=== PATIENT | female | born 1970 | race Caucasian/White ===

== ENCOUNTER 2017-03-21 07:59 | Inpatient (IN) ==
[2017-03-20 15:57] LABS: INR 0.9; PT Patient Result 9.2 SECS; Partial Thromboplastin Time 26.1 SECS (0-40)
[2017-03-20 16:08] LABS: Alanine Aminotransferase 24 U/L (13-56); Albumin 4.1 G/DL (3.4-5.0); Alkaline Phosphatase 56 U/L (45-117); Aspartate Amino Transferase 18 U/L (0-37); Bilirubin,Total < 0.39 MG/DL (0.2-1.0); Blood Urea Nitrogen 11 MG/DL (7-18); Calcium 8.9 MG/DL (8.5-10.1); Glucose 113 MG/DL (74-106); Osmolality,Calculated 282.1 MOS/KG (273-304); Potassium 4.3 MMOL/L (3.5-5.1); Sodium 142 MMOL/L (136-145)
[~2017-03-21 07:59] MED LIST: ceFAZolin 2,000 MG in PREMIX 1 EACH IV ONE
--- NOTE | 2017-03-21 08:48 | History and Physical Update ---
History and Physical Update - History and Physical H&P was reviewed, the patient examined and there: are no changes in the patients condition since last H&P was completed.
[2017-03-21] MEDS ORDERED: DIAZEPAM 5 MG TABLET PO ONE (08:50)
[2017-03-21] MEDS ORDERED: SCOPOLAMINE 1.5 MG PATCH TRANSDERM ONE ×2 (08:50→09:04)
[2017-03-21] MEDS ORDERED: FAMOTIDINE 20 MG TABLET PO ONE (08:50)
[2017-03-21] MEDS ORDERED: FAMOTIDINE 20 MG TABLET ONE (09:04)
[2017-03-21] MEDS ORDERED: DIAZEPAM 5 MG TABLET ONE (09:04)
[2017-03-21] MEDS: LACTATED RINGERS 1,000 ML IV SCH ×2 (12:15→16:00)
[2017-03-21] MEDS ORDERED: IODINE TOP ONE (13:09)
[2017-03-21] MEDS ORDERED: POTASSIUM IODIDE TOP ONE (13:09)
[2017-03-21] MEDS ORDERED: ISOSULFAN BLUE 5 ML VIAL SUBCUT ONE (13:09)
[2017-03-21] MEDS ORDERED: FERRIC SUBSULFATE TOP ONE (13:10)
[2017-03-21] MEDS ORDERED: BUPIVACAINE MPF 0.25% /EPI 30 ML VIAL ONE (13:32)
[2017-03-21] MEDS ORDERED: EPINEPHrine 1 MG/ML VIAL ONE (13:32)
[2017-03-21] MEDS ORDERED: DEXAMETHASONE 4 MG/1 ML VIAL ONE (15:09)
[2017-03-21] MEDS ORDERED: PROMETHAZINE 25 MG/1 ML VIAL ONE (15:09)
[2017-03-21] MEDS ORDERED: PROPOFOL 200 MG/20 ML VIAL IV ONE (15:09)
[2017-03-21] MEDS ORDERED: KETOROLAC 30 MG/1 ML VIAL ONE (15:09)
[2017-03-21] MEDS ORDERED: ROCURONIUM 100 MG/10 ML VIAL IV ONE (15:09)
[2017-03-21] MEDS ORDERED: ONDANSETRON 4 MG/2 ML VIAL ONE (15:09)
[2017-03-21] MEDS ORDERED: GLYCOPYRROLATE 0.4 MG/2 ML VIAL ONE (15:09)
[2017-03-21] MEDS ORDERED: NEOSTIGMINE 10 MG/10 ML VIAL ONE (15:09)
[2017-03-21] MEDS ORDERED: LIDOCAINE 2% 5 ML VIAL ONE (15:09)
[2017-03-21] MEDS ORDERED: TISSUE ADHESIVE 1 EACH APPLICATOR TOP ONE (17:09)
[2017-03-21] MEDS ORDERED: ACETAMINOPHEN 325 MG TABLET PO PRN (17:25)
[2017-03-21] MEDS ORDERED: HYDROmorphone 2 MG/1 ML VIAL IV PRN (17:25)
--- NOTE | 2017-03-21 17:42 | Operative Note ---
Date of procedure: 03/21/17 Pre-op diagnosis: Carcinoma of the left breast Post-op diagnosis: same Procedure: Operative note: Preoperative diagnosis: Carcinoma of the left breast invasive 2 o'clock position Postoperative diagnosis: Same Procedure: 1. Left axillary sentinel node biopsy 2. Wire localization with lumpectomy 1 to 3 o'clock position left breast per Dr. Durbin 3. Oncoplastic reconstruction of the left breast per Dr. Carranza Surgeon Dr. Durbin Electric Powerline Examiner Phyllis Suggs, [employer] [facility] Pl[facility] surgeon Dr. Carranza Brief history: 46-year-old white female who has had a core needle biopsy for an abnormal mammogram showing invasive cancer at about 2 o'clock position left breast. This was not a very large area and it did not show up as being extensive cancer in the breast by MRI. She does have moderate-sized breast and we still looked like the possibility we could remove this with a lumpectomy site. Anticipated that she may need a fair amount of tissue removed from this upper outer quadrant and so we got Dr. Carranza consulted for possible Oncoplastic reconstruction. She came in had sentinel node mapping which was very vague not clear nodes seen her counts were pretty low at this point. This was after 2 days protocol. When she came in through same day she was taken to the breast clinic where Dr. Haile did a bracketing of this area for us to proceed with her surgery. Procedure: With patient supine position prepped and draped in sterile fashion timeout and antibiotics completed we approach this area the breast there were 2 wires coming out at about the 2 to 3 o'clock position on the breast itself at this time. We put the counter into the axilla and got accounts there was only about 34 at this point but not very strong. At that time we then put some local in in the area the axilla. I like to go ahead and make an incision in the axilla carefully dissected down through the subtenons tissue bleeding controlled with cauterization. We entered through Aparna's fascia and to the area the axilla fat. We put the counter again I got a count of about 34 but is still 1 very strong. At that point we put her out in the Jigar technology injected at the 12 3 and 6 o'clock position of the material and then brought in her monitor we could see it track up through the breast and into the axilla. Is identified node in this area. We marked that node and then went in and carefully dissected it out. Once it was out it did have a count of 34 and the axilla was 0 now. We put the lillian monitor own and it lit up very brightly. The septum was confirmed that we got the sentinel node. We then sent that off to pathology. We washed irrigated use light cauterization controlling bleeding. Would like to go ahead and close this axilla with closed the subtenons tissue with 3-0 Vicryl and closed the skin running 4-0 Monocryl. Dermabond was applied to this area. Path would come back and see if this lymph node was negative. So we knew we did have to go back in this area. With the axilla part done then we approach this area the breast were made a transverse incision between the 2 wires at this time going down to the skin subtenons tissue. Carefully dissected down through the subcutaneous tissue and I went down to where the breast tissue is at and then begin to dissected around where the wires were to get this area completely removed with the wires intact in this region. We dissected through this lumpectomy site remove the specimen with the wires in place. We did mae the margins at this time with a margin marker and clips. Once the specimen was out that we took it to x-ray and they looked at it. It looked like the upper wire with the medial margin was that may have's be close at this point. We sent specimen to pathology and they too felt like we had clear margins were felt this medial area was close at this time. At this point I went back into the breast and I ellipsed out the pocket that was there taking both complete margins medial laterally superiorly and inferiorly down to muscle. We removed this area intact and marked this region for examination. We then washed irrigated use light cauterization for bleeding. This did leave a larger defect and at this point Dr. Carranza came in to do a reconstruction of this area. See Dr. Carranza's note Once he had completed the procedure then Dr. Hong came in to do a LEEP procedure. See Dr. Hong note With that completed then the patient was taken recovery room in stable satisfactory condition Estimated blood loss 15 cc Sponge count correct 2 Drains none Complications none Condition stable satisfactory Anesthesia: GETA, local (0.25% Marcaine with epinephrine mixed [id number] 1% Xylocaine plain) Surgeon / Physician: Vimal Durbin Electric Powerline Examiner: Phyllis Suggs Estimated blood loss: other (10 cc) Specimens: other (Left axillary sentinel node and lumpectomy left breast) Condition: stable Disposition: floor Results - Labs CBC & BMP: 03/20/17 15:41 Discharge Plan - Discharge Medications No Action buPROPion SR [Wellbutrin Sr] 150 mg PO DAILY Soy Isofla/Blk Cohosh/Mag Bark [Estroven 155 mg Capsule] 1 tablet PO DAILY Multivitamin [One Daily] 1 each PO DAILY - Follow Up or Referral - Forms/Instructions
[2017-03-21] MEDS ORDERED: MIDAZOLAM 2 MG/2 ML VIAL ONE (18:33)
[2017-03-21] MEDS ORDERED: ACETAMINOPHEN 1,000 MG/100 ML VIAL IV ONE (18:33)
[2017-03-21] MEDS ORDERED: ePHEDrine 50 MG/ML AMP ONE (18:33)
[2017-03-21] MEDS ORDERED: LACTATED RINGERS 2,000 ML IV ONE (18:33)
[2017-03-21] MEDS ORDERED: SEVOFLURANE 1 UNIT/15 MINUTE INH ONE (18:33)
--- NOTE | 2017-03-21 18:36 | Anesthesia Post-Op ---
Anesthesia Post OP - Post Ansesthetic Evaluation Patient seen in post op: Yes Resp: within normal limits CV: within normal limits Mental: within normal limits Temp: within normal limits Edvs-Gj-Vueqpinpw: within normal limits Nausea and Vomiting: within normal limits Pain: within normal limits
[2017-03-21] MEDS: DEXTROSE 5% NACL 0.45% 1,000 ML IV SCH (20:12)
[2017-03-21] MEDS: KETOROLAC 15 MG/1 ML VIAL IV SCH (20:21)
[2017-03-21] MEDS: ceFAZolin 2,000 MG in PREMIX 1 EACH IV SCH (23:55)
[2017-03-22] MEDS: KETOROLAC 15 MG/1 ML VIAL IV SCH ×2 (01:18→06:11)
[2017-03-22] MEDS: DEXTROSE 5% NACL 0.45% 1,000 ML IV SCH (01:20)
[2017-03-22 05:06] LABS: Basophils % 0.2 % (0.0-0.8); Hematocrit 35.3 VOL% (35.7-47.0); Hemoglobin 11.8 GM/DL (12.0-16.0); Immature Granulocytes % 0.5 %; Immature Granulocytes Absolute 0.07 #; Lymphocytes # 0.8 10*3/uL (1.4-4.0); Lymphocytes % 6.2 % (21.3-54.2); Mean Corpuscular HGB Conc 33.4 GM/DL (32-36); Mean Corpuscular Hemoglobin 32 PG (27-34); Mean Corpuscular Volume 94.1 FL (87-102); Mean Platelet Volume 11.9 FL (9.6-12.0); Monocytes # 0.6 10*3/uL (0.11-0.8); Monocytes % 4.4 % (1.7-12.7); Neutrophils # 11.8 10*3/uL (1.4-7.4); Neutrophils % 88.7 % (38.7-73.9); Platelet Count 206 T/CUMM (130-400); Red Blood Count 3.75 MC/CUMM (3.8-5.5); Red Cell Distribution Width 14.6 % (9.3-17.3); White Blood Count 13.3 T/CUMM (4-12)
[2017-03-22 05:29] LABS: Calcium 8.8 MG/DL (8.5-10.1); Potassium 4.6 MMOL/L (3.5-5.1)
[2017-03-22] MEDS: ceFAZolin 2,000 MG in PREMIX 1 EACH IV SCH (07:05)
--- NOTE | 2017-03-22 07:55 | Ultrasound Report ---
ULTRASOUND GUIDED WIRE LOCALIZATION OF THE LEFT BREAST WITH SPECIMEN RADIOGRAPH DATE: March 21, 2017 HISTORY: 46-year-old female returning for wire localization of the 1.6 cm low grade carcinoma noted on core needle biopsy from February 20, 2017. The carcinoma is located in the left upper outer quadrant at the 1:00 position located 3 cm from the nipple. PROCEDURE: The ultrasound guided wire localization was discussed with the patient and written informed consent was obtained. The left upper outer quadrant 1:00 irregular mass measuring 1.6 cm was redemonstrated with ultrasound. The skin of the breast and the ultrasound probe were prepared in the usual sterile fashion. 1% lidocaine was used for local anesthesia and a 7 cm Kopans needle was placed at the lateral posterior margin of the targeted mass. Accurate positioning was confirmed with real-time ultrasound and a 20 cm length hookwire was placed through the needle and the needle was removed leaving about 4 cm of wire inside the breast. Additional 1% lidocaine was used for local anesthesia and a second 7 cm Kopans needle was placed at the anterior medial margin of the mass and accurate positioning was confirmed with real-time ultrasound. A 20 cm length hookwire was placed through the needle and the needle was removed leaving about 4 cm of wire inside the breast. The patient did well and no immediate complications occurred. The hookwires were secured to the patient's chest with an overlying gauze bandage. The hookwire mammographic views demonstrate that the 2 hookwires bracket the targeted carcinoma in the upper outer quadrant at the 1:00 position. The labeled mammographic views were sent with the patient to surgery. The specimen radiograph demonstrates that the targeted mass is included along with the clip placed at core biopsy. The distal portion of the 2 hookwires is also included. The mass on the specimen measures 2.8 cm and approaches the edge of the specimen where 2 surgical clips were placed. The results were discussed with Dr. Durbin at the time of interpretation. IMPRESSION: Status post ultrasound-guided bracketed wire localization of the low grade carcinoma in the left upper outer quadrant at the 1:00 position. Final report is pending histology. PROCEDURE INTERPRETED AT [facility] DEPARTMENT OF RADIOLOGY Final Report Signed by: Dr. Marion Haile
--- NOTE | 2017-03-22 08:40 | Discharge Summary ---
Hospital Course - Hospital Course Hospital Course: Discharge Summary 03/22/17 This 46 year old female patient was brought through same day surgery for elective left breast lumpectomy with sentinel lymph node biopsy by Dr Durbin, oncoplastic reconstructive reconstruction of the left breast by Dr Abdullahi Carranza , and LEEP procedure by Dr Savi Hong. She was found to have an abnormal left breast mammogram on recent routine screening mammogram. 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 She opted for lumpectomy with sentinel node biopsy and oncoplastic reconstruction. At that point, she, having also had an abnormal PAP smear, had been recommended to have a LEEP procedure by her cook camp, Dr Hong. We were in agreement with the patient that these procedures could be combined, since she was apprehensive about multiple anesthetic events. On March 21, 2017, she was taken to the OR, where an uncomplicated left breast lumpectomy with wire localization was performed. Margins at first were close, so additional tissue was taken and felt to be clear. [place] node biopsy was also performed, with successful mapping and excision of the sentinel node. Touch prep of the sentinel node was found to be negative for metastasis per Dr Wiley, pathologist, so no additional axillary procedures were performed. At that point , Dr Abdullahi Carranza came in and completed the oncoplastic breast closure, followed by Dr Hong's LEEP procedure. Today, the patient is tolerating a regular diet. Vital signs and labs are within normal limits. Her pain is very minimal. Wounds of the left breast are clean and dry without unusual bruising or swelling. Her is present at the bedside and is very supportive. She is in good emotional spirits and seems very able and anxious to go home. We will therefore discharge her home today on [place] for pain, with an additional 5 days of Toradol to help with the surgical discomfort. She will follow up with us in our office in approximately 10 days unless she has problems, and with Miguel Carranza and Gely as scheduled. Instructions on wound care and signs/symptoms of complications and problems were given to the patient and her . - Time spent with patient Time with patient DS: Greater than 30 minutes Diagnosis - Discharge Diagnosis (1) Carcinoma of left female breast Status: Acute (2) Abnormal Pap smear of cervix Status: Acute Specialty Discharge - Follow Up or Referrals Follow up with: Vimal Durbin MD [Physician] - (See Dr Durbin in 1-2 weeks) Abdullahi Carranza MD [Physician] - (Call and see when he wants to ck pt) Savi Hong DO [Physician] - (Call & see when she wants to ck pt) Discharge Plan - Discharge Data Disposition: Disch To Home/Self Care Condition at Discharge: Stable Discharge Diet: advance to your usual diet Activity: increase activity as tolerated Hygiene: may shower Weight Bearing at Discharge: full weight bearing Driving: not for (Until Sunday) Contact your physician if you experience:: fever over 101, Redness or swelling, Nausea/Vomiting, Shortness of breath, Bleeding, pain uncontrolled by pain medications Wound / Dressing Care Instructions: Shower daily with antibacterial soap & water. Pat dry. No ointments, lotions, or creams to incision. Place a dry gauze pad over the incisions and wear a sports bra or soft stretchy bra to support your breasts. - Discharge Medications New HYDROcodone/ACETAMIN 7.5-325 [[place] 7.5-325] 1 tablet PO Q6H PRN #20 tablet PRN Reason: Pain Moderate (4-7) Ketorolac Tab [Toradol Tab] 10 mg PO Q8H #25 tablet Continue buPROPion SR [Wellbutrin Sr] 150 mg PO DAILY Soy Isofla/Blk Cohosh/Mag Bark [Estroven 155 mg Capsule] 1 tablet PO DAILY Multivitamin [One Daily] 1 each PO DAILY - Follow Up or Referral - Forms/Instructions Exam - Constitutional Vitals: Period Temp Pulse Resp BP Sys/Ramos Pulse Ox Last 24 Hr 97 F-98.3 F 52-119 16-20 91-153/46-75 94-100 General appearance: normal weight, no acute distress - Head Head exam: Present: normal inspection - Eye Eye exam: Present: EOMI Pupils: Present: TYLER - Neck Neck exam: Present: normal inspection. Absent: lymphadenopathy, tenderness - Respiratory Respiratory exam: Present: clear to auscultation bilaterally - Cardiovascular Cardiovascular exam: Present: regular rate and rhythm - GI/Abdominal GI/Abdominal exam: Present: normal bowel sounds. Absent: tenderness - Extremities Exam Extremities exam: Present: normal inspection - Neurological Exam Neurological exam: Present: alert, oriented X3 - Psychiatric Psychiatric exam: Present: normal affect, normal mood. Absent: agitated, anxious, depressed - Skin Skin exam: Present: warm, dry, other (Left breast incision and left axillary incision both are clean and dry; minimal ecchymoses present at the javed- incisional area without unusual swelling or tenderness to suggest seroma/ hematoma.) Discharge Results Labs on day of discharge: Labs from last 24 hours 03/22/17 03/22/17 03:21 03:21 WBC 13.3 H RBC 3.75 L Hgb 11.8 L Hct 35.3 L MCV 94.1 MCH 32 MCHC 33.4 RDW 14.6 Plt Count 206 MPV 11.9 Neut % (Auto) 88.7 H Lymph % (Auto) 6.2 L [place] % (Auto) 4.4 Eos % (Auto) 0.0 Baso % (Auto) 0.2 Neut # (Auto) 11.8 H Lymph # (Auto) 0.8 L [place] # (Auto) 0.6 Eos # (Auto) 0.0 Baso # (Auto) 0.0 Immature Gran % 0.5 Nucleated RBC % 0.0 Immature Gran # 0.07 Nucleated RBCs # 0.00 Sodium 143 Potassium 4.6 Chloride 108 H Carbon Dioxide 21 Anion Gap 18.6 H BUN 7 Creatinine 0.70 GFR Calculation 98 BUN/Creatinine Ratio 10.00 Glucose 144 H Calculated Osmolality 285.0 Calcium 8.8 DS: Provider Discharging clinician: Phyllis Suggs CNP, R
[2017-03-22] MEDS ORDERED: buPROPion SR 150 MG TABLET PO SCH (09:00)
[2017-03-22] MEDS ORDERED: PANTOPRAZOLE 40 MG TABLET PO SCH (09:00)
[2017-03-22] MEDS ORDERED: MULTIVITAMIN (CENTRUM) TABLET PO SCH (09:00)
[2017-03-22] MEDS ORDERED: ENOXAPARIN 40 MG/0.4 ML SYRINGE SUBCUT SCH (11:30)
[2017-03-22 11:39] VITALS: BP 96/50
--- NOTE | 2017-03-23 16:15 | Pathology Report from [facility] ---
[facility] [facility] [place] [id number] PATIENT NAME : Malathi Ricks ORDERING DR : FERNANDEZ WEISS MD CLINICAL HX: Left breast cancer, Abn pap smear POST-OP DX: Same SPECIMEN INFO: #1 Aurelia node left #2 Lumpectomy #3 Lumpectomy #4 Transformation zone #5 LT edge #6 Posterior #7 Endocervical curetting GROSS DESCRIPTION: #1 MALATHI RICKS is a 2.5 x 2.0 cm adipose mass with a 1.9 x 1.4 cm lymph node with central fat submitted entirely in #1 for frozen.#2 MALATHI RICKS is a 6.8 x 5.0 x 2.0 cm adipose fragment with two hookwires. Inked per the surgeon; superior red, inferior blue, anterior green, medial yellow, lateral orange, and posterior/deep black. Cut surface between the two wires shows an area of fibrosis with old hemorrhage consistent with previous biopsy site with a central 1.0 cm mass which is grossly 0.5 cm from the mid anterior superior specimen margin. The remainder of the tissue is fibroadipose tissue with some areas of fibrosis extending to the anterior and deep margins. Sections: 2A-2D tumor with superior and anterior margins, 2E business services representative fibrous tissue, 2F business services representative medial margin. Note: Time in formalin is 1700 , 03/21/2017. Time out 1800 , 03/22/2017.#3 MALATHI RICKS received in formalin is a 6.0 x 4.5 x 1.8 cm fibroadipose tissue which as been previously oriented with the inferior margin inked blue, the lateral orange, the medial yellow, the posterior black, the superior red. The central aspect of the specimen is cavitary possibly representing the previous biopsy site. The cut surfaces are predominately fibrous with no distinct masses grossly appreciated. [place] sections are submitted in cassettes 3A-3H. NOTE: Time in formalin is after 1730 03/21, time out 1800 03/22.#4 MALATHI DIAL & TRANSFORMATION ZONE received in formalin labeled is a 2.5 x 2.4 x 1.0 cm cervical cone with a qi at one margin which will arbitrarily be given the 12:00 position. Sections 4A 12-3:00, 4B 3-6:00, 4C 6-9:00, 4D 9-12:00.#5 MALATHI DIAL & LT EDGE received in formalin is a 2.0 x 0.9 x 0.6 cm pink spear tissue sectioned and submitted in cassette #5.#6 MALATHI DIAL & POSTERIOR received in formalin is a 1.0 x 0.8 x 0.9 cm of pink spear tissue sectioned and submitted in cassette #6.#7 MALATHI DIAL & ENDOCERVICAL CURETTINGS received in formalin is 1.0 x 0.3 cm of bloody mucoid tissue submitted in 7. DIAGNOSIS FOR MALATHI RICKS: SEE PAGE #2#1-#3 LEFT BREAST, WIRE LOCALIZED LUMPECTOMY (Two fragments (#2 & #3), 6.8 x 5 and 6 x 4.5 cm) WITH SENTINEL NODE : TUMOR TYPE: Ductal adenocarcinoma. TUMOR SITE: Upper outer quadrant. TUMOR SIZE: 12 mm. CHARLES GRADE I (tubules = 1, pleomorphism = 2, mitoses = 2 MF / 10 HPF) TUMOR MARGINS: Final margins (#3) uninvolved by carcinoma, w/ nearest (superior/medial) margin = 4 mm. DCIS: Present, low nuclear grade, papillary/cribriform pattern, without necrosis, present within and surrounding tumor, >20 mm in diameter, comprising 60% of tumor (EIC = present, >25%) . DCIS MARGINS: Final margins (#3) (Medial) INVOLVED by DCIS; Inferior/Deep margin = <1 mm. LYMPH-VASCULAR INVASION: Absent. LYMPH NODES: Total lymph nodes present (sentinel & non sentinel) = 1; Total sentinel nodes = 1. Single sentinel node negative for tumor on H&E levels and cytokeratin immunostain (0/1). ADDITIONAL FINDINGS: Fibrocystic changes with dilated cysts , duct ectasia, stromal sclerosis, apocrine metaplasia, simple intraductal hyperplasia, and sclerosing adenosis with microcalcifications. AJCC PATHOLOGIC STAGE IA (pT1c pN0(i-)).NOTE: Tumor markers on previous biopsy ([id number], 02/20/17) show ER+/ MA+/ HER2-/ Ki-67 = 8%.#4 CERVIX, LEEP: Focal moderate dysplasia/ HSIL/ CHAPINCITO 2, p16+ (indirect HPV marker), completely excised. Focal mild dysplasia/ LSIL/ [place]O 1 extending to 6:00-9:00 exocervical margin (with split oriented to 12:00).#5 CERVIX, LEEP, ADDITIONAL LEFT EDGE: Unremarkable cervical squamous mucosa, no dysplasia seen (p16 immunostain-).#6 CERVIX, LEEP, ADDITIONAL POSTERIOR: Unremarkable cervical squamous mucosa, no dysplasia seen.#7 ENDOCERVICAL CURETTAGE: Benign proliferative endometrial glands and stroma. COLLECTED DATE: 03/21/2017 [facility] REPORT DATE: 03/23/2017 ELECTRONICALLY SIGNED BY: Dg Wiley M.D. 03/23/2017 - 14:21:16 [facility]ITAL[facility]
--- NOTE | 2017-04-14 23:30 | Operative Note ---
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 Gen. LMA anesthesia was then administered by members of the anesthesia Department. The patient was then placed in dorsal lithotomy position in Neville stirrups and sterilely prepped and draped in usual customary fashion. The bladder was catheterized for urine. A bimanual exam was then performed with no adnexal masses palpate. A weighted speculum was placed in the posterior vaginal vault Lugol's solution was applied to the cervix. Loop electrode was used to perform a LEEP of the cervix to include all margins of the transformation zone. ECC was performed. Tissue was sent to pathology. Cervix was made hemostatic with electrocautery. The vault was cleared of remaining blood and clots. The patient tolerated procedure well and was transferred to the postanesthesia care unit in stable condition. Anesthesia: other (LMA) Surgeon / Physician: Savi Hong Estimated blood loss: other (20cc) Specimens: other (Transformation zone, ECC) Condition: stable Disposition: PACU Results - Labs CBC & BMP: 03/22/17 03:21 03/22/17 03:21 Discharge Plan - Discharge Data Disposition: Disch To Home/Self Care - Discharge Medications New HYDROcodone/ACETAMIN 7.5-325 [[place] 7.5-325] 1 tablet PO Q6H PRN #20 tablet PRN Reason: Pain Moderate (4-7) Ketorolac Tab [Toradol Tab] 10 mg PO Q8H #25 tablet Continue buPROPion SR [Wellbutrin Sr] 150 mg PO DAILY Soy Isofla/Blk Cohosh/Mag Bark [Estroven 155 mg Capsule] 1 tablet PO DAILY Multivitamin [One Daily] 1 each PO DAILY - Follow Up or Referral Follow Up: Savi Hong DO [Physician] - 03/27/17 10:30 am (Call & see when she wants to ck pt) Abdullahi Carranza MD [Physician] - (Please call office for follow up appointment) Vimal Durbin MD [Physician] - 04/02/17 9:45 am (See Dr Durbin in 1-2 weeks) - Forms/Instructions Instructions: Cervical Cone Biopsy (DC), Excisional Breast Biopsy (DC)
== END 2017-03-22 11:46 | disposition home or self-care (01) | DRG 578 ==
LOC: N.SDSINP 07:59 → N.OR 07:59 → N.SDSINP 08:01 → EDSTATUS 12:45 → N.3E 17:25
PROVIDERS: ADMIT Specialist; ATTEND Specialist